=== PATIENT | male | born 1970 | race Caucasian/White ===

== ENCOUNTER 2022-04-29 15:50 | Outpatient (CLI) | payer OTHER, SELFPAY ==
[2022-04-29 20:16] LABS: Albumin* 4.4 g/dL (3.3-5.0)
[2022-04-29 20:17] LABS: Chloride* 96 mmol/L (96-114); Potassium* 3.5 mmol/L (3.6-5.1); Sodium* 133 mmol/L (135-149)
[2022-04-29 20:19] LABS: Aspartate Amino Transferase* 57 U/L (12-35); Bilirubin Total* 0.5 mg/dL (0.1-1.5); Carbon Dioxide* 29 mmol/L (20-32); Estimated Glomerular Filt Rate 92 ml/min
[2022-04-29 20:20] LABS: Alanine Aminotransferase* 67 U/L (4-50); Alkaline Phosphatase* 58 U/L (40-150); Blood Urea Nitrogen* 19 mg/dL (5-24); Calcium* 9.1 mg/dL (8.4-10.6); Glucose* 88 mg/dL (60-115); Total Protein* 7.4 g/dL (6.0-8.3)
== END 2022-04-29 15:51 | disposition home or self-care (01) ==
LOC: NFLDREF 15:51
PROVIDERS: PCP Family Medicine; Visit Provider Family Medicine
DX: Z00.00 Encounter for general adult medical examination without abnormal findings (principal); I10 Essential (primary) hypertension; R79.89 Other specified abnormal findings of blood chemistry
CPT/HCPCS: 80053

== ENCOUNTER 2022-11-22 07:02 | Outpatient (CLI) | payer OTHER, SELFPAY ==
--- NOTE | 2022-11-22 07:15 | MR_ITS ---
[facility] [address] [facility] [address] Phone:?[phone] Fax:?[phone] Referring Physician Information: Conrado Roberts M.D. [address] [place] [id number] Phone:?[phone] Fax:?[phone] Patient:Jose Moreno D.O.B:?1970 Sex:?Male Phone:?[phone] [facility] MRN:?[id number] Exam Date:?11/22/2022 ? EXAM: MRI of the RIGHT KNEE, without contrast CLINICAL: Right knee pain. Evaluate for medial meniscal tear. COMPARISONS: X-rays dated 11/13/2022. TECHNICAL: MR sequences of the right knee: sagittals: PD, PDFS coronals: PD, T2FS axials: PD, PDFS SEDATION: None. CONTRAST: None. FINDINGS: Ligaments: ACL: Intact and unremarkable. PCL: There is mild partial tearing of the PCL with small ganglion cyst formation adjacent to the PCL. MCL: Intact and unremarkable. LCL: Intact and unremarkable. Posterolateral corner: Popliteus, biceps femoris, iliotibial band, and the popliteofibular ligament appear intact. Posteromedial corner: Semimembranosus, pes anserine tendons and posterior oblique ligament appear intact. Extensor mechanism: Patellar tendon: Intact, without tendinopathy. Quadriceps tendon: Intact, without tendinopathy. Retinacula: Medial and lateral retinacula are intact. Fat pads: Unremarkable infrapatellar Hoffa's, quadriceps and prefemoral fat pads. Patellofemoral joint: Patella: Scattered deep chondral fissuring involves the patella on axial series 4 image 10-11. Trochlea: No significant chondromalacia. Medial compartment: Medial meniscus: Suspect mild ill-defined fraying/tearing involving the posterior root fibers on sagittal series 6 image 19. Medial meniscus otherwise appears intact. Medial cartilage: No significant chondromalacia. Lateral compartment: Lateral meniscus: There is complex tearing involving the posterior horn extending into the posterior root on sagittal series 6 images 11-16. There is increased signal involving the free edge of the body segment on coronal series 8 image 20, only seen on a single image and therefore not completely meeting MRI criteria for tearing. Lateral cartilage: Small segment of full-thickness chondral loss involves the superior posterior nonweightbearing lateral femoral condyle on axial series 4 image 13 with mild adjacent subchondral marrow edema on axial series 4 image 14 and sagittal series 6 image 12. Small segment of full-thickness chondral loss involves the posterior lateral tibial plateau underlying the posterior horn lateral meniscus on sagittal series 6 image 12 and coronal series 8 image 23. Knee joint: Effusion: Physiologic right knee effusion. Intra-articular bodies:?No convincing bodies identified. Popliteal cyst: Small popliteal cyst is present with leakage of fluid extending along the periphery of the medial gastrocnemius muscle. Bones: No suspicious bone marrow signal alteration or fracture line. Anterior knee subcutaneous soft tissue edema is nonspecific. IMPRESSION: 1. Tearing of the posterior horn extending into the posterior root lateral meniscus. Focal increased signal involving the free edge of the body segment lateral meniscus is only seen on a single image and therefore not completely meeting MRI criteria for tearing, likely reflective of degenerative fraying. 2. Suspect mild ill-defined degenerative fraying/tearing involving the posterior root fibers medial meniscus. 3. Mild partial tearing of the PCL with small adjacent ganglion cyst formation. 4. Small segments of full-thickness chondral loss involving the lateral compartment as above. Deep chondral fissuring is also seen to involve the patella. 5. Small popliteal cyst with leakage of fluid extending along the periphery of the medial gastrocnemius muscle. JCZ Electronically signed on 11/22/2022 2:01:00 PM by Salbador Meza D.O.
== END 2022-11-22 07:03 | disposition home or self-care (01) ==
LOC: MRI 07:03
PROVIDERS: PCP Family Medicine; Visit Provider Orthopaedic Surgery
DX: M25.561 Pain in right knee (principal); S83.241A Other tear of medial meniscus, current injury, right knee, initial encounter; M23.251 Derangement of posterior horn of lateral meniscus due to old tear or injury, right knee; M71.21 Synovial cyst of popliteal space [Baker], right knee
CPT/HCPCS: 73721

== ENCOUNTER 2023-02-26 08:00 | Outpatient (RCR) | payer OTHER, SELFPAY | END 2023-03-24 09:29 | disposition home or self-care (01) | PROVIDERS: PCP Family Medicine; Visit Provider Orthopaedic Surgery | DX: S83.289A Other tear of lateral meniscus, current injury, unspecified knee, initial encounter (principal); M17.11 Unilateral primary osteoarthritis, right knee; R53.1 Weakness; Z51.89 Encounter for other specified aftercare | CPT/HCPCS: 97110; 97112; 97161 ==

== ENCOUNTER 2023-07-09 07:55 | Outpatient (CLI) | payer OTHER, SELFPAY | END 2023-07-09 07:56 | disposition home or self-care (01) | LOC: NFLDREF 15:42 | PROVIDERS: PCP Family Medicine; Referring Provider Family Medicine; Visit Provider Internal Medicine | DX: Z00.00 Encounter for general adult medical examination without abnormal findings (principal); I10 Essential (primary) hypertension; Z12.5 Encounter for screening for malignant neoplasm of prostate; Z13.6 Encounter for screening for cardiovascular disorders | CPT/HCPCS: 80053; 80061; 84153 ==

== ENCOUNTER 2024-11-22 10:01 | Outpatient (CLI) | payer OTHER, SELFPAY | END 2024-11-22 10:02 | disposition home or self-care (01) | LOC: NFLDREF 11-24 07:28 | PROVIDERS: PCP Internal Medicine; Referring Provider Internal Medicine; Visit Provider Family Medicine | DX: I10 Essential (primary) hypertension (principal); Z12.5 Encounter for screening for malignant neoplasm of prostate | CPT/HCPCS: 80048; G0103 ==